=== PATIENT | female | born 1975 | race American Indian/Alaskan Native ===

== ENCOUNTER 2016-10-17 09:36 | Emergency (ER) | payer SELFPAY ==
[2016-10-17] MEDS ORDERED: TORADOL ONE (11:11)
[2016-10-17] MEDS ORDERED: DECADRON ONE (11:15)
[2016-10-17 11:38] VITALS: BP 111/72
[2016-10-17] MEDS ORDERED: TORADOL IM ONE (11:40)
[2016-10-17] MEDS ORDERED: DECADRON IM ONE (11:40)
[2016-10-17] MEDS: TORADOL IM ONE ×2 (11:41→11:42)
[2016-10-17 12:53] LABS: Basophils % (Auto) 0.5 % (0.0-1.8); Eosinophils % (Auto) 0.5 % (0.0-4.3); Hematocrit 34.5 % (30.3-42.9); Hemoglobin 11.6 gm/dl (10.1-14.3); Mean Corpuscular HGB Conc 34 % (30-34); Mean Corpuscular Hemoglobin 30 pg (28-32); Mean Corpuscular Volume 88 fl (79-97); Platelet Count 302 K/mm3 (140-440); Red Cell Distribution Width 12.9 % (13.2-15.2); White Blood Count 8.6 K/mm3 (4.5-11.0)
[2016-10-17 14:49] LABS: Anion Gap 17 mmol/L; BUN/Creatinine Ratio 23.33; Blood Urea Nitrogen 14 mg/dL (7-17); Carbon Dioxide 25 mmol/L (22-30); Chloride 101.6 mmol/L (98-107); Glucose 98 mg/dL (65-100); Potassium 3.7 mmol/L (3.6-5.0); Sodium 140 mmol/L (137-145)
[2016-10-17] MEDS ORDERED: VALIUM PO ONE (16:45)
[2016-10-17] MEDS ORDERED: NORCO 5/325 PO ONE (16:45)
--- NOTE | 2016-10-17 16:45 | Emergency Department Report ---
ED Back Pain/Injury HPI - General Stated Complaint: BACK AND LEG PAIN Time Seen by Provider: 10/17/16 11:15 Source: patient, family Limitations: No Limitations - History of Present Illness Initial Comments: 40 y/o female presents c/o sciatica notch pain on her left side that started 6 days ago and worsened today. Pain radiates down her leg. Pt takes prescribed unknown medication. Patient had similar incident in the past. She denies any urinary burning frequency or urgency. Denies any nausea vomiting. Last menstrual period 3 days ago. She reports pain is 9 out of 10 to left back radiating down her left leg. Denies any loss of bowel or bladder function. Eyes any numbness or tingling. She denies any abdominal pain, vaginal bleeding or discharge. MD Complaint: back pain Onset/Timin -: days(s) Similar Symptoms Previously: Yes Place: home Radiation: buttocks, left leg Severity: severe Severity scale (0 -10): 9 Quality: aching Consistency: constant Improves With: none Worsens With: movement, walking Context: other (patient with history of chronic back pain) Associated Symptoms: denies: confusion, weakness, chest pain, numbness, difficulty walking, cough, difficulty urinating, diaphoresis, incontinence, fever/chills, constipation, headaches, abdominal pain, loss of appetite, malaise , nausea/vomiting, rash, seizure, shortness of breath, syncope Treatments Prior to Arrival: other medications - Related Data Previous Rx's Medication Instructions Recorded Last Taken Type Cyclobenzaprine [Flexeril] 10 mg PO TID PRN #15 tablet 10/17/16 Unknown Rx traMADol [Ultram] 50 mg PO Q6HR PRN #20 tablet 10/17/16 Unknown Rx Allergies Allergy/AdvReac Type Severity Reaction Status Date / Time No Known Allergies Allergy Unverified 10/17/16 11:40 ED Review of Systems ROS: Stated complaint: BACK AND LEG PAIN Other details as noted in HPI Comment: All other systems reviewed and negative Constitutional: denies: chills, fever Respiratory: no symptoms reported Cardiovascular: denies: chest pain, palpitations, edema, syncope Gastrointestinal: denies: abdominal pain, nausea, vomiting Genitourinary: denies: urgency, dysuria, frequency, hematuria, discharge, abnormal menses Musculoskeletal: back pain, arthralgia. denies: joint swelling, myalgia Skin: denies: rash Neurological: denies: headache, weakness, numbness, paresthesias, confusion, abnormal gait, vertigo ED Past Medical Hx - Past Medical History Previous Medical History?: Yes Additional medical history: Back pain - Surgical History Past Surgical History?: No - Family History Family history: no significant - Social History Smoking Status: Never Smoker Substance Use Type: None Other Social History: She has her family. - Medications Home Medications: Home Medications Medication Instructions Recorded Confirmed Last Taken Type Cyclobenzaprine [Flexeril] 10 mg PO TID PRN #15 tablet 10/17/16 Unknown Rx traMADol [Ultram] 50 mg PO Q6HR PRN #20 tablet 10/17/16 Unknown Rx ED Physical Exam - General Limitations: No Limitations General appearance: alert, in no apparent distress - Head Head exam: Present: atraumatic, normocephalic, normal inspection - Eye Eye exam: Present: normal appearance, PERRL, EOMI Pupils: Present: normal accommodation - ENT ENT exam: Present: normal exam, normal orophraynx, mucous membranes moist, TM's normal bilaterally, normal external ear exam - Neck Neck exam: Present: normal inspection, full ROM. Absent: tenderness, meningismus, lymphadenopathy - Respiratory Respiratory exam: Present: normal lung sounds bilaterally. Absent: respiratory distress, chest wall tenderness - Cardiovascular Cardiovascular Exam: Present: regular rate, normal rhythm, normal heart sounds - GI/Abdominal GI/Abdominal exam: Present: soft, normal bowel sounds. Absent: distended, tenderness, guarding, rebound, rigid - Extremities Exam Extremities exam: Present: normal inspection, full ROM, normal capillary refill. Absent: tenderness, pedal edema, joint swelling, calf tenderness - Back Exam Back exam: Present: normal inspection, full ROM. Absent: tenderness, CVA tenderness (R), CVA tenderness (L), muscle spasm, paraspinal tenderness, vertebral tenderness, rash noted - Neurological Exam Neurological exam: Present: alert, oriented X3, normal gait, reflexes normal. Absent: motor sensory deficit - Expanded Neurological Exam Expanded Neurological exam: Absent: innattentive, memory loss-remote event, memory loss- recent event, ataxia, receptive aphasia, expressive aphasia, total aphasia, tremor, protecting the airway Patient oriented to: Present: person, place, time Speech: Present: fluid speech Cranial nerves: EOM's Intact: Normal, Gag Reflex: Normal, Nystagmus: Normal, Facial Sensation: Normal Cerebellar function: Romberg: Normal Upper motor neuron: Pronator Drift: Normal, Sensory Extinction: Normal Sensory exam: Upper Extremity Light Touch: Normal, Upper Extremity Temperature: Normal, UE 2 Point Discrimination: Normal, Lower Extremity Light Touch: Normal, Lower Extremity Temperature: Normal, LE 2 Point Discrimination: Normal Motor strength exam: RUE: 5, LUE: 5, RLE: 5, LLE: 5 DTR: bicep (R): 2+, bicep (L): 2+, tricep (R): 2+, tricep (L): 2+, knee (R): 2+ , knee (L): 2+, ankle (R): 2+, ankle (L): 2+ Best Eye Response ([place]): (4) open spontaneously Best Motor Response ([place]): (6) obeys commands Best Verbal Response ([place]): (5) oriented [place] Total: 15 - Psychiatric Psychiatric exam: Present: normal affect, normal mood - Skin Skin exam: Present: warm, dry, intact, normal color. Absent: rash ED Course Vital Signs 10/17/16 11:35 Temperature 98.5 F Pulse Rate 84 Respiratory 16 Rate Blood Pressure 111/72 Vital Signs 10/17/16 10/17/16 10/17/16 11:35 17:09 17:47 Temperature 98.5 F Pulse Rate 84 Respiratory 16 18 Rate Blood Pressure 111/72 O2 Sat by Pulse 100 Oximetry - Reevaluation(s) Reevaluation #1: 10/17/16 17:40 Patient given Decadron 10 mg and Toradol 60 mg in emergency room. He was further given Prosperity 5/325 2 tablets and Valium 10 mg by mouth because back pain was not relieved with initial pain medication. ED Medical Decision Making - Lab Data Result diagrams: 10/17/16 12:39 10/17/16 12:39 Lab Results 10/17/16 10/17/16 10/17/16 Range/Units 12:39 12:39 12:39 WBC 8.6 (4.5-11.0) K/mm3 RBC 3.90 (3.65-5.03) M/mm3 Hgb 11.6 (10.1-14.3) gm/dl Hct 34.5 (30.3-42.9) % MCV 88 (79-97) fl MCH 30 (28-32) pg MCHC 34 (30-34) % RDW 12.9 L (13.2-15.2) % Plt Count 302 (140-440) K/mm3 Lymph % (Auto) 18.5 (13.4-35.0) % [place] % (Auto) 5.3 (0.0-7.3) % Eos % (Auto) 0.5 (0.0-4.3) % Baso % (Auto) 0.5 (0.0-1.8) % Lymph # 1.6 (1.2-5.4) K/mm3 [place] # 0.5 (0.0-0.8) K/mm3 Eos # 0.0 (0.0-0.4) K/mm3 Baso # 0.0 (0.0-0.1) K/mm3 Seg Neutrophils % 75.2 H (40.0-70.0) % Seg Neutrophils # 6.5 (1.8-7.7) K/mm3 Sodium 140 (137-145) mmol/L Potassium 3.7 (3.6-5.0) mmol/L Chloride 101.6 (98-107) mmol/L Carbon Dioxide 25 (22-30) mmol/L Anion Gap 17 mmol/L BUN 14 (7-17) mg/dL Creatinine 0.6 L (0.7-1.2) mg/dL Estimated GFR > 60 ml/min BUN/Creatinine Ratio 23.33 % Glucose 98 (65-100) mg/dL Calcium 9.0 (8.4-10.2) mg/dL HCG, Qual Negative (Negative) - Medical Decision Making ED course: Patient with lower back pain to the left lumbar area radiating down to her left lower extremity. I discussed with patient she has lumbar radiculopathy which is recurrent and she will need to follow-up with orthopedic doctor. Patient was given Toradol 60 mg IM and Decadron 10 mg IM in triage area. She Came back to room and she says she is still having pain so she was given Prosperity 5/325 2 tablets and Valium 10 mg by mouth. Patient discharged home in stable condition with her family in voice understanding of discharge diagnosis and treatment plan. Discharged home with prescription for Flexeril and Ultram. Critical care attestation.: If time is entered above; I have spent that time in minutes in the direct care of this critically ill patient, excluding procedure time. ED Disposition Clinical Impression: Lumbar back pain Qualifiers: Chronicity: unspecified Back pain laterality: left Sciatica presence: with sciatica Sciatica laterality: sciatica of left side Qualified Code(s): M54.42 - Lumbago with sciatica, left side Disposition: DISCHARGED TO HOME OR SELFCARE Is pt being admited?: No Does the pt Need Aspirin: No Condition: Stable Instructions: Back Pain (ED), Lumbar Radiculopathy (ED) Additional Instructions: Please follow up with orthopedic doctor call tomorrow to schedule appointment. Do not drive or operate heavy machinery while taking Flexeril as this medication will cause drowsiness Prescriptions: Cyclobenzaprine [Flexeril] 10 mg PO TID PRN #15 tablet PRN Reason: Muscle Spasm traMADol [Ultram] 50 mg PO Q6HR PRN #20 tablet PRN Reason: Pain Referrals: PRIMARY CARE, [Primary Care Provider] - 3-5 Days Forms: Work/School Release Form(ED)
--- NOTE | 2016-10-19 13:02 | Emergency Department Report ---
Entered by JOSE F GREY, acting as scribe for CLAUDIO CARRANZA PA. Chief Complaint: Back Pain/Injury Stated Complaint: BACK AND LEG PAIN Time Seen by Provider: 10/17/16 11:09 - HPI History of Present Illness: 40 y/o female presents c/o sciatica notch pain on her left side that started yesterday and worsened today. Pain radiates down her leg. Pt takes prescribed unknown medication. - ROS Review of Systems: as noted in HPI - Exam Physical Exam: General: 40 y/o female in no acute distress. Well-developed, well-nourished. CV: Regular rate and rhythm. No murmurs rubs or gallops. Lungs: Clear to auscultation bilaterally. Abdomen: No tenderness to palpation. No guarding or rebound tenderness. Normal bowel sounds. Mini Neuro: Alert and oriented 3. MSE screening note: Focused history and physical exam performed. Due to findings the following was ordered: ED Disposition for MSE Condition: Stable This documentation as recorded by the scribe,JOSE F GREY,accurately reflects the service I personally performed and the decisions made by me,CLAUDIO CARRANZA PA.
== END 2016-10-17 18:23 | disposition home or self-care (01) ==
LOC: ED 09:36
DX: M54.42 Lumbago with sciatica, left side (principal)
CPT/HCPCS: 36415; 80048; 84703; 85025; 96372; 99283; J1100; J1885